=== PATIENT | female | born 1995 | race Caucasian/White ===

== ENCOUNTER 2019-07-24 23:45 | Emergency (ER) | payer MEDICAID ==
[~2019-07-24] VITALS: Ht 170.2 cm; Wt 82.1 kg
[2019-07-24 23:55] VITALS: Ht 170.2 cm; Wt 82.1 kg
[2019-07-25 02:23] VITALS: BP 100/60
== END 2019-07-25 02:23 | disposition home or self-care (01) ==
LOC: ED 23:45
DX: S43.401A Unspecified sprain of right shoulder joint, initial encounter (principal); M79.10 Myalgia, unspecified site; V49.69XA Unspecified car occupant injured in collision with other motor vehicles in traffic accident, initial encounter; Y93.I9 Activity, other involving external motion; Y92.413 State road as the place of occurrence of the external cause; Y99.8 Other external cause status
CPT/HCPCS: J1885

== ENCOUNTER 2019-07-29 08:37 | Emergency (ER) | payer MEDICAID ==
[~2019-07-29] VITALS: Ht 170.2 cm; Wt 83.9 kg
[2019-07-29 08:54] VITALS: BP 112/67; Ht 170.2 cm; Wt 83.9 kg
== END 2019-07-29 11:00 | disposition home or self-care (01) ==
LOC: ED 08:37
DX: M25.511 Pain in right shoulder (principal); F41.9 Anxiety disorder, unspecified; V49.49XD Driver injured in collision with other motor vehicles in traffic accident, subsequent encounter
CPT/HCPCS: J1885